=== PATIENT | female | born 1950 | race Hispanic/Latino ===

== ENCOUNTER 2016-12-08 11:26 | Outpatient (CLI) | payer MEDICARE, OTHER ==
[2016-12-08 12:38] LABS: Blood Urea Nitrogen 16 mg/dL (7-17)
[2016-12-08] MEDS ORDERED: NACL ONE (13:11)
--- NOTE | 2016-12-08 14:49 | Nuclear Medicine Report ---
Whole body bone scan: Following injection of radionuclide imaging at 3 hours demonstrates activity in the urinary tract and a relatively good bone to background ratio. Comparison is made to the most recent prior examination on July 30, 2016. A new focal area of increased uptake is identified involving the anterior right sixth or seventh rib. The numerous multiple focal rib areas of uptake identified posteriorly in the left rib cage on prior study are much less evident than on the current study. The pattern appears similar to that obtained on April 29, 2016. Multiple other areas of abnormal uptake are essentially the same. Impressions: The findings are consistent with metastatic disease. There does appear to be a single new right rib lesion. The apparent decrease in multiple posterior left rib activity may be real or just technical.
--- NOTE | 2016-12-09 09:51 | Cat Scan Report ---
CT OF THE CHEST WITH IV CONTRAST: HISTORY: Left breast cancer. FINDINGS: Comparison is made to the previous study on July 30, 2016. The mediastinum and hilar regions are normal. There are no pulmonary nodules or masses. There is no evidence of pleural fluid. The left breast mass is again noted. No axillary adenopathy is seen. Diffuse skeletal metastatic disease is stable. IMPRESSION: Stable osseous metastatic disease with no evidence of pulmonary metastasis or other significant new findings.
--- NOTE | 2016-12-09 09:52 | Cat Scan Report ---
CT OF THE ABDOMEN AND PELVIS WITH IV AND ORAL CONTRAST: HISTORY: Breast cancer. FINDINGS: Numerous new ill-defined hypodense masses are seen throughout both lobes of the liver, too numerous to count. The overall size of the liver is normal. The spleen, pancreas, adrenal glands, and kidneys are normal. There are no pelvic masses or abnormal fluid collections. No mesenteric inflammation is seen. Severe diffuse skeletal metastatic disease is stable. IMPRESSION: 1. Interval development of numerous new hepatic metastases, too numerous to count. 2. Stable diffuse bony metastatic disease.
== END 2016-12-08 11:27 | disposition home or self-care (01) ==
LOC: NM 11:26
PROVIDERS: ATTEND Internal Medicine Hematology & Oncology
DX: C79.51 Secondary malignant neoplasm of bone (principal); C78.7 Secondary malignant neoplasm of liver and intrahepatic bile duct; C50.112 Malignant neoplasm of central portion of left female breast
CPT/HCPCS: 36415; 71260; 74177; 78306; 82565; 84520; A9503; Q9967